=== PATIENT | female | born 1995 | race Caucasian/White ===

== ENCOUNTER 2022-05-15 12:00 | Emergency (ER) | payer MEDICAID ==
[2022-05-15] MEDS ORDERED: Sodium Chloride 0.9% 10 ML Syringe FLUSH PRN (13:13)
== END 2022-05-15 14:50 | disposition home or self-care (01) ==
LOC: JD.ED 12:00
DX: K62.5 Hemorrhage of anus and rectum (principal)
CPT/HCPCS: 36415; 74177; 85025; 99285; J3490; 99283

== ENCOUNTER 2022-05-22 08:26 | Day surgery (SDC) | payer MEDICAID ==
[~2022-05-22 08:26] MED LIST: Lactated Ringers 1,000 ML IV SCH; Lidocaine 1%/Sod Bicarbonate in NS 8.4% 1 ML Syringe IDERM PRN; Sodium Chloride 0.9% 10 ML Syringe FLUSH PRN; Sodium Chloride 0.9% 10 ML Syringe FLUSH SCH
[2022-05-22] MEDS ORDERED: Lidocaine 1% 4 ML ONE (10:10)
[2022-05-22] MEDS ORDERED: Propofol 200 MG/20 ML SDV ONE (10:10)
[2022-05-22] MEDS ORDERED: fentaNYL 100 MCG/2 ML SDV ONE (10:10)
== END 2022-05-22 11:50 | disposition home or self-care (01) ==
LOC: JD.SDS 08:26
PROVIDERS: ATTEND Surgery
DX: K63.89 Other specified diseases of intestine (principal); K62.5 Hemorrhage of anus and rectum; E78.00 Pure hypercholesterolemia, unspecified; G43.909 Migraine, unspecified, not intractable, without status migrainosus; J45.909 Unspecified asthma, uncomplicated; F17.290 Nicotine dependence, other tobacco product, uncomplicated; Z80.0 Family history of malignant neoplasm of digestive organs
CPT/HCPCS: 45380; J2704; J3010; J7120; J3490